=== PATIENT | female | born 1990 | race Caucasian/White ===

== ENCOUNTER 2017-02-10 08:50 | Emergency (ER) | payer MEDICAID ==
[~2017-02-10] VITALS: Ht 162.6 cm; Wt 74.4 kg
[2017-02-10 08:57] VITALS: BP 137/83
[2017-02-10] MEDS ORDERED: NACL 0.9% 1,000 ML IV SCH (09:19)
[2017-02-10 09:42] LABS: BASOPHILS # (AUTO) 0.3 K/uL (0.00-0.22); BASOPHILS % (AUTO) 3.8 % (0.0-2.0); EOSINOPHILS # (AUTO) 0.1 K/uL (0-0.4); EOSINOPHILS % (AUTO) 1.4 % (0.0-4.0); HEMATOCRIT 38.8 % (36-48); HEMOGLOBIN 12.9 g/dL (12.0-16.0); LYMPHOCYTES # (AUTO) 2.1 K/uL (2.5-16.5); LYMPHOCYTES % (AUTO) 31.6 % (20.5-51.1); MEAN CORPUSCULAR HEMOGLOBIN 30 pg (27-31); MEAN CORPUSCULAR HGB CONC 33 g/dL (33-37); MEAN CORPUSCULAR VOLUME 90 fL (80-94); MONOCYTES # (AUTO) 0.3 K/uL (0.8-1.0); MONOCYTES % (AUTO) 4.2 % (1.7-9.3); NEUTROPHILS # (AUTO) 3.9 K/uL (1.8-7.7); PLATELET COUNT (AUTO) 182 K/uL (140-450); RED BLOOD CELL COUNT(AUTO) 4.33 MIL/uL (4.20-5.40); RED CELL DISTRIBUTION WIDTH 12.5 % (11.6-13.7); WHITE BLOOD COUNT (AUTO) 6.7 K/uL (4.8-10.8)
[2017-02-10 09:47] LABS: APPEARANCE,URINE CLEAR (CLEAR); BILIRUBIN,URINE NEGATIVE (NEGATIVE); BLOOD, URINE 1+ (NEGATIVE); COLOR,URINE YELLOW (YELLOW); LEUKOCYTE ESTERASE ,URINE NEGATIVE (NEGATIVE); NITRITE, URINE NEGATIVE (NEGATIVE); UGLUCOSE NEGATIVE (NEGATIVE)
[2017-02-10 10:01] LABS: ALBUMIN 3.8 g/dL (3.4-5.0); ANION GAP 12.7 (8-16); CARBON DIOXIDE 24.1 mmol/L (21-32); CREATININE 0.6 mg/dL (0.6-1.3); POTASSIUM 3.8 mmol/L (3.5-5.1); TOTAL BILIRUBIN 0.3 mg/dL (0.0-1.0)
[2017-02-10 10:13] LABS: RBC,URINE 0-5 (RARE) /HPF (0-5); WBC,URINE 0-5 (RARE) /HPF (0-5)
[2017-02-10 11:35] VITALS: BP 108/64
== END 2017-02-10 11:35 | disposition home or self-care (01) ==
LOC: MED 08:50
DX: O20.0 Threatened abortion (principal); Z3A.01 Less than 8 weeks gestation of pregnancy; Z91.041 Radiographic dye allergy status
CPT/HCPCS: 36415; 76817; 80053; 81001; 81025; 82150; 83605; 83690; 84702; 85025; 86900; 86901; 96360; 99285; J7030

== ENCOUNTER 2018-09-14 18:34 | Emergency (ER) | payer MEDICAID ==
[~2018-09-14] VITALS: Ht 162.6 cm; Wt 64.9 kg
[2018-09-14 18:38] VITALS: BP 129/80
--- NOTE | 2018-09-14 19:50 | NUR ---
PT AMBULATED TO BED 4
--- NOTE | 2018-09-14 20:00 | NUR ---
PT REPORTS THAT THERE IS NO PALPABLE MASS, REDNESS OR SWELLING NOTED ON R BREAST. REPORTS THAT R BREAST IS TENDER AND SENSITIVE.
--- NOTE | 2018-09-14 20:00 | NUR ---
28/ PRESENTS TO ED, C/O 09/28 SHARP/WARM R BREAST PAIN, RADIATING TO R UPPER NECK, X5 DAYS. REPORTS INTERMITTENT DIZZINESS. DENIES L SIDED CP, SOB, N/V. AOX4, SKIN PINK WARM AND DRY, RR EVEN AND UNLABORED. LMP 06/24/18, URINE IS NEGATIVE. DENIES MED HX OR RX.
--- NOTE | 2018-09-14 21:18 | NUR ---
Dr. Arreola evaluating patient at bedside.
--- NOTE | 2018-09-14 21:28 | NUR ---
PT LAYING IN BED, RR EVEN AND UNLABORED. VSS, REPORTS 4/10 R BREAST PAIN, RADIATING TO R NECK.
[2018-09-14 21:36] VITALS: BP 115/70
== END 2018-09-14 21:36 | disposition home or self-care (01) ==
LOC: MED 18:34
DX: S29.011A Strain of muscle and tendon of front wall of thorax, initial encounter (principal); Z88.8 Allergy status to other drugs, medicaments and biological substances; X58.XXXA Exposure to other specified factors, initial encounter; Y93.89 Activity, other specified; Y92.89 Other specified places as the place of occurrence of the external cause; Y99.8 Other external cause status
CPT/HCPCS: 81002; 81025; 99283